=== PATIENT | female | born 1980 | race Caucasian/White ===

== ENCOUNTER 2016-10-18 20:38 | Emergency (ER) | payer OTHER ==
[2016-10-18 20:49] VITALS: BP 148/84
--- NOTE | 2016-10-18 21:16 | EDM.PDOC ---
ED HPI GENERAL MEDICAL PROBLEM - General Chief Complaint: Fever Stated Complaint: Fever Time Seen by Provider: 10/18/16 21:00 Source of Information: Reports: Patient, RN Notes Reviewed History Limitations: Reports: No Limitations - History of Present Illness INITIAL COMMENTS - FREE TEXT/NARRATIVE: 35 year old female presents to the ED today with chief complaint of fever of 101.3 today. The fever started today. She's had a 2-3 day history of generalized body aches, fatigue, urgency, frequency, and dysuria. She has a history of urge incontinence and had bladder function studies done with Christiane Franco on 10/03/16. She was also just in [place] vacation. She denies cough, shortness of breath, chest pain, abdominal pain, nausea, vomiting, diarrhea. She reports a mild sore throat and runny nose that's started this evening. Generalized Pain Score (Numeric/FACES): 5 - Related Data Allergies Allergy/AdvReac Type Severity Reaction Status Date / Time No Known Allergies Allergy Verified 10/18/16 20:49 Home Meds: Home Meds Levofloxacin [Levaquin] 500 mg PO DAILY #5 tablet 10/18/16 [Rx] Past Medical History - Past Health History Medical/Surgical History: Denies Medical/Surgical History Social & Family History - Family History Family Medical History: Noncontributory - Tobacco Use Smoking Status *Q: Never Smoker - Caffeine Use Caffeine Use: Reports: Coffee - Recreational Drug Use Recreational Drug Use: No ED ROS GENERAL - Review of Systems Review Of Systems: See Below Constitutional: Reports: Fever, Chills, Fatigue Respiratory: Reports: No Symptoms. Denies: Shortness of Breath, Cough, Sputum, Hemoptysis Cardiovascular: Reports: No Symptoms. Denies: Chest Pain GI/Abdominal: Reports: No Symptoms. Denies: Abdominal Pain, Diarrhea, Nausea, Vomiting : Reports: Dysuria, Frequency, Urgency ED EXAM, GENERAL - Physical Exam Exam: See Below Exam Limited By: No Limitations General Appearance: Alert, WD/WN, No Apparent Distress Respiratory/Chest: No Respiratory Distress, Lungs Clear, Normal Breath Sounds, No Accessory Muscle Use, Chest Non-Tender Cardiovascular: Normal Peripheral Pulses, No Murmur, Tachycardia (108 bpm) GI/Abdominal: Normal Bowel Sounds, Soft, Non-Tender, No Distention Back Exam: Normal Inspection, Full Range of Motion, CVA Tenderness (L). No: CVA Tenderness (R) Skin Exam: Warm, Dry, Intact Course - Vital Signs Last Recorded V/S: Last Vital Signs Temp 100.8 F H 10/18/16 20:47 Pulse 108 H 10/18/16 20:47 Resp 18 10/18/16 20:47 BP 148/84 H 10/18/16 20:47 Pulse Ox 93 L 10/18/16 20:47 - Orders/Labs/Meds Orders: Active Orders 24 hr Category Date Time Status CULTURE URINE [RM] Stat Lab 10/18/16 22:00 Uncollected Ketorolac [Toradol] Med 10/18/16 22:29 Once 60 mg IM ONETIME ONE Levofloxacin [Levaquin] Med 10/18/16 22:29 Once 500 mg PO ONETIME ONE Labs: Laboratory Tests 10/18/16 Range/Units 21:15 Urine Color Yellow (Yellow) Urine Appearance Clear (Clear) Urine pH 6.0 (5.0-8.0) Ur Specific [place] 1.010 (1.005-1.030) Urine Protein Negative (Negative) Urine Glucose (UA) Negative (Negative) Urine Ketones Negative (Negative) Urine Occult Blood Trace-intact H (Negative) Urine Nitrite Negative (Negative) Urine Bilirubin Negative (Negative) Urine Urobilinogen 0.2 (0.2-1.0) Ur Leukocyte Esterase Trace H (Negative) Urine RBC 0-5 (0-5) /hpf Urine WBC 10-20 H (0-5) /hpf Ur Epithelial Cells Not Reportable Ur Squamous Epith Cells 5-10 H (0-5) /hpf Urine Bacteria Rare (FEW) /hpf Urine Mucus Not seen (FEW) /hpf - Re-Assessments/Exams Free Text/Narrative Re-Assessment/Exam: UA is positive for UTI. Will send for culture. Diagnosis is early pyelonephritis due to flank pain. She will be started on Levaquin. First dose will be given in the ED since the pharmacies are closed. She was instructed to return to ED if symptoms worsen or if not improved in 48 hours. Departure - Departure Time of Disposition: 22:39 Disposition: Home, Self-Care 01 Condition: good Clinical Impression: Pyelonephritis - Discharge Information Prescriptions: Levofloxacin [Levaquin] 500 mg PO DAILY #5 tablet Forms: ED Department Discharge Additional Instructions: Ibuprofen 600mg every 6-8 hours as needed for pain or fever Alternating with Tylenol 1000mg every 8 hours as needed for pain or fever Levaquin 500mg once a day for the next 5 days Return to ER if symptoms worsen or do not improve in 48 hours Return to ER if your fever does not respond to Tylenol and Ibuprofen Follow-up with Dr. Reeder early next week - My Orders Last 24 Hours: My Active Orders 10/18/16 22:00 CULTURE URINE [RM] Stat 10/18/16 22:29 Ketorolac [Toradol] 60 mg IM ONETIME ONE Levofloxacin [Levaquin] 500 mg PO ONETIME ONE - Assessment/Plan Last 24 Hours: My Active Orders 10/18/16 22:00 CULTURE URINE [RM] Stat 10/18/16 22:29 Ketorolac [Toradol] 60 mg IM ONETIME ONE Levofloxacin [Levaquin] 500 mg PO ONETIME ONE
[2016-10-18] MEDS ORDERED: Levofloxacin 500 MG Tab PO ONE (22:29)
[2016-10-18] MEDS ORDERED: Ketorolac 60 MG/2 ML SDV IM ONE (22:29)
== END 2016-10-18 23:00 | disposition home or self-care (01) ==
LOC: JD.ED 20:38
DX: N12 Tubulo-interstitial nephritis, not specified as acute or chronic (principal); Z79.899 Other long term (current) drug therapy
CPT/HCPCS: 81001; 87086; 96372; 99283; A9270; J1885

== ENCOUNTER 2022-04-10 09:54 | Inpatient (IN) | payer OTHER ==
[2022-04-10] MEDS ORDERED: Bupivacaine 0.5% 30 ML SDV ONE (12:13)
[2022-04-10] MEDS ORDERED: Propofol 200 MG/20 ML SDV ONE ×3 (12:35→13:58)
[2022-04-10] MEDS ORDERED: fentaNYL 100 MCG/2 ML SDV ONE (12:35)
[2022-04-10] MEDS ORDERED: Lidocaine 1% 5 ML VIAL ONE (12:35)
[2022-04-10] MEDS ORDERED: Ondansetron 4 MG/2 ML SDV ONE (12:35)
[2022-04-10] MEDS ORDERED: Midazolam 1 MG/ML 2 ML SDV ONE (12:35)
[2022-04-10] MEDS ORDERED: Morphine PF 10 MG/10 ML SDV ONE (13:13)
[2022-04-10] MEDS ORDERED: EPINEPHrine 1 MG/ML SDV ONE (13:14)
[2022-04-10] MEDS ORDERED: ceFAZolin 2 GM Vial ONE (13:37)
[2022-04-10] MEDS ORDERED: Lactated Ringers 1,000 ML ONE (13:50)
[2022-04-10] MEDS ORDERED: HYDROmorphone 0.5 MG/0.5 ML Syringe ONE (15:50)
[2022-04-10] MEDS ORDERED: Ketorolac 30 MG/ML SDV ONE (15:50)
[2022-04-10] MEDS ORDERED: Ondansetron 4 MG/2 ML SDV IVPUSH PRN (19:48)
[2022-04-10] MEDS ORDERED: Acetaminophen/oxyCODONE 325-5 MG Tab PO PRN ×2 (19:48)
[2022-04-10] MEDS ORDERED: Lactated Ringers 1,000 ML IV SCH (19:48)
[2022-04-10] MEDS ORDERED: Docusate Sodium 100 MG Cap PO SCH (21:00)
[2022-04-10] MEDS: Ibuprofen 400 MG Tab PO SCH (21:20)
[2022-04-11 00:06] VITALS: BP 103/50; PULSE 74
[2022-04-11] MEDS: Ibuprofen 400 MG Tab PO SCH (02:13)
== END 2022-04-11 10:54 | disposition home or self-care (01) | DRG 743 ==
LOC: JD.SDS 09:54 → JD.MS 14:47
PROVIDERS: ADMIT Obstetrics & Gynecology; ATTEND Obstetrics & Gynecology
PROC: 0UT90ZZ Resection of Uterus, Open Approach (ICD-10-PCS; principal; 2022-04-10)
PROC: 0UB70ZZ Excision of Bilateral Fallopian Tubes, Open Approach (ICD-10-PCS; 2022-04-10)
DX: D25.1 Intramural leiomyoma of uterus (principal); D25.0 Submucous leiomyoma of uterus; D25.2 Subserosal leiomyoma of uterus; N92.0 Excessive and frequent menstruation with regular cycle; N94.10 Unspecified dyspareunia; N94.6 Dysmenorrhea, unspecified
CPT/HCPCS: 36415; 85025; A9270-GY; J0171; J0690; J2250; J2274; J2405; J2704; J3010; J3490; J7120